=== PATIENT | female | born 1955 | race Caucasian/White ===

== ENCOUNTER 2023-06-21 12:01 | Emergency (ER) | payer OTHER, BC ==
[2023-06-21 12:08] VITALS: BMI 32.3
[2023-06-21] MEDS ORDERED: ACETAMINOPHEN 1000 MG/100 ML BAG IVPB ONE (13:41)
[2023-06-21] MEDS ORDERED: ACETAMINOPHEN INJECTION 100 ML IVPB ONE (13:53)
[2023-06-21 15:26] LABS: BASO % 0.2 % (0-2.0); EOS % 0.2 % (0-4.5); HEMATOCRIT 41.9 % (32.4-45.2); LYMPH % 8.3 % (8-40); MCH 29.1 pg (25.7-33.7); MCHC 33.3 g/dl (32.0-36.0); MEAN CELL VOLUME 87.3 fl (80-96); MEAN PLT VOLUME 9.4 fl (7.5-11.1); MONO % 2.7 % (3.8-10.2); NEUT % 88.6 % (42.8-82.8); PLATELET COUNT 246 10^3/uL (134-434); RDW 13.1 % (11.6-15.6); WHITE BLOOD COUNT 14.6 K/mm3 (4.0-10.0)
[2023-06-21] MEDS ORDERED: PROPOFOL 200 MG/20 ML VIAL IVPUSH ONE (15:33)
[2023-06-21] MEDS ORDERED: KETAMINE HCL 200 MG/20 ML VIAL IVPUSH ONE (15:33)
[2023-06-21] MEDS ORDERED: KETAMINE HCL 200 MG/20 ML VIAL ONE (15:38)
[2023-06-21] MEDS ORDERED: PROPOFOL 20 ML ONE (15:38)
[2023-06-21 15:44] LABS: POTASSIUM 3.9 mmol/L (3.5-5.1)
[2023-06-21 15:46] LABS: CALCIUM 9.2 mg/dL (8.5-10.1)
[2023-06-21 15:50] LABS: CREATININE 0.6 mg/dL (0.55-1.3)
[2023-06-21 15:52] LABS: BILIRUBIN,TOTAL 0.3 mg/dL (0.2-1); TOT PROT 7.2 g/dl (6.4-8.2)
[2023-06-21 17:26] VITALS: RESP 20; TEMP 99.5
[2023-06-21 17:48] VITALS: BP 128/82; PULSE 78
== END 2023-06-21 17:30 | disposition home or self-care (01) ==
LOC: JER 12:01
PROC: 0RSJXZZ Reposition Right Shoulder Joint, External Approach (ICD-10-PCS; principal; 2023-06-21)
PROC: 3E033NZ Introduction of Analgesics, Hypnotics, Sedatives into Peripheral Vein, Percutaneous Approach (ICD-10-PCS; 2023-06-21)
DX: S43.004A Unspecified dislocation of right shoulder joint, initial encounter (principal); M25.511 Pain in right shoulder; W01.198A Fall on same level from slipping, tripping and stumbling with subsequent striking against other object, initial encounter; Y99.0 Civilian activity done for income or pay
CPT/HCPCS: 36415; 73030-TC-RT-FY; 80053; 85025; 86850; 86900; 86901; 93005; 93010; 99285-25

== ENCOUNTER 2023-07-22 19:29 | Observation (INO) | payer BC, OTHER ==
[2023-07-22 20:53] LABS: PROTHROMBIN TIME (PATIENT) 11.6 SEC (9.7-13.0)
[2023-07-22 20:56] LABS: ACTIVATED PTT 32.8 SECONDS (25.2-36.5)
[2023-07-22 20:58] LABS: BASO % 0.3 % (0-2.0); EOS % 1.3 % (0-4.5); HEMATOCRIT 39.2 % (32.4-45.2); HEMOGLOBIN 13.8 GM/dL (10.7-15.3); LYMPH % 19.9 % (8-40); MCHC 35.3 g/dl (32.0-36.0); MEAN CELL VOLUME 84.9 fl (80-96); MEAN PLT VOLUME 8.5 fl (7.5-11.1); MONO % 7.4 % (3.8-10.2); NEUT % 71.1 % (42.8-82.8); PLATELET COUNT 261 10^3/uL (134-434); RBC 4.61 M/mm3 (3.60-5.2); RDW 12.8 % (11.6-15.6); WHITE BLOOD COUNT 9.5 K/mm3 (4.0-10.0)
[2023-07-22 21:01] LABS: POTASSIUM 3.8 mmol/L (3.5-5.1)
[2023-07-22 21:02] LABS: CALCIUM 8.9 mg/dL (8.5-10.1)
[2023-07-22 21:03] LABS: ALBUMIN 3.9 g/dl (3.4-5.0)
[2023-07-22 21:04] LABS: BLOOD UREA NITROGEN 8.6 mg/dL (7-18)
[2023-07-22 21:06] LABS: CREATININE 0.7 mg/dL (0.55-1.3)
[2023-07-22 21:08] LABS: BILIRUBIN,TOTAL 0.3 mg/dL (0.2-1)
[2023-07-22 21:38] LABS: URINE APPEARANCE CLEAR; URINE BILIRUBIN NEGATIVE (NEGATIVE); URINE COLOR YELLOW; URINE GLUCOSE (UA) 2+ (NEGATIVE); URINE KETONE NEGATIVE (NEGATIVE); URINE LEUK ESTERASE NEGATIVE (NEGATIVE); URINE NITRITE NEGATIVE (NEGATIVE); URINE PROTEIN NEGATIVE (NEGATIVE); URINE UROBILINOGEN 0.2 mg/dL (0.2-1.0)
[2023-07-22] MEDS ORDERED: predniSONE 20 MG TABLET (UD) PO ONE (23:42)
[2023-07-22] MEDS ORDERED: valACYclovir HCL 500 MG TABLET (FP) PO ONE (23:42)
[2023-07-22] MEDS ORDERED: valACYclovir HCL 500 MG TABLET (FP) ONE (23:47)
[2023-07-22] MEDS ORDERED: predniSONE 20 MG TABLET (UD) ONE (23:47)
[2023-07-23] MEDS ORDERED: LEVOTHYROXINE NA 50 MCG TABLET (FP) ONE (08:26)
[2023-07-23] MEDS: INSULIN SLIDING SCALE (NOVOLOG) 1 VIAL SQ SCH ×4 (08:51→22:04)
[2023-07-23] MEDS: LEVOTHYROXINE NA 50 MCG TABLET (FP) PO SCH (08:52)
[2023-07-23] MEDS: ENOXAPARIN NA (PORCINE) 40 MG/0.4 ML DISP.SYRIN SQ SCH (09:50)
[2023-07-23] MEDS: LISINOPRIL 20 MG TABLET PO SCH (09:50)
[2023-07-23] MEDS: HYDROCHLOROTHIAZIDE 25 MG TABLET (FP) PO SCH (09:50)
[2023-07-23 17:50] VITALS: BMI 36.5
[2023-07-23] MEDS: ASPIRIN 81 MG CHEWABLE TABLETS PO SCH (18:28)
[2023-07-23] MEDS ORDERED: ATORVASTATIN CA 40 MG TABLET (FP) PO SCH (22:00)
[2023-07-23] MEDS ORDERED: MONTELUKAST NA 10 MG TABLET PO SCH (22:00)
[2023-07-23] MEDS ORDERED: INSULIN (NOVOLOG) ASPART 100 UNITS/ML 10ML VIAL ONE (22:02)
[2023-07-24] MEDS: INSULIN SLIDING SCALE (NOVOLOG) 1 VIAL SQ SCH ×3 (06:14→17:22)
[2023-07-24] MEDS: LEVOTHYROXINE NA 50 MCG TABLET (FP) PO SCH (06:14)
[2023-07-24 09:02] LABS: HEMATOCRIT 41.2 % (32.4-45.2); HEMOGLOBIN 14.2 GM/dL (10.7-15.3); MCH 29.7 pg (25.7-33.7); MCHC 34.5 g/dl (32.0-36.0); MEAN PLT VOLUME 8.8 fl (7.5-11.1); PLATELET COUNT 267 10^3/uL (134-434); RBC 4.79 M/mm3 (3.60-5.2); RDW 12.7 % (11.6-15.6)
[2023-07-24 09:50] LABS: POTASSIUM 3.4 mmol/L (3.5-5.1)
[2023-07-24] MEDS: LISINOPRIL 20 MG TABLET PO SCH (09:58)
[2023-07-24] MEDS: HYDROCHLOROTHIAZIDE 25 MG TABLET (FP) PO SCH (09:58)
[2023-07-24] MEDS: ENOXAPARIN NA (PORCINE) 40 MG/0.4 ML DISP.SYRIN SQ SCH (09:58)
[2023-07-24] MEDS: ASPIRIN 81 MG CHEWABLE TABLETS PO SCH (09:58)
[2023-07-24 09:59] LABS: CALCIUM 8.8 mg/dL (8.5-10.1)
[2023-07-24 10:00] LABS: ALBUMIN 3.7 g/dl (3.4-5.0); MAGNESIUM 1.7 mg/dL (1.8-2.4)
[2023-07-24 10:03] LABS: CREATININE 0.6 mg/dL (0.55-1.3)
[2023-07-24 10:04] LABS: BILIRUBIN,TOTAL 0.6 mg/dL (0.2-1); TOT PROT 6.8 g/dl (6.4-8.2)
[2023-07-24] MEDS ORDERED: MAGNESIUM SULF 50% (8.12 MEQ/2 ML-1 GM VIAL) IVPB ONE (10:15)
[2023-07-24] MEDS ORDERED: POTASSIUM CHLORIDE TABS 20 MEQ TABLET.ER (FP) PO ONE (12:22)
[2023-07-24] MEDS ORDERED: LISINOPRIL 20 MG TABLET PO ONE (15:47)
[2023-07-24 16:10] VITALS: TEMP 98.9
[2023-07-24 16:12] VITALS: BP 139/68; PULSE 95; RESP 20
[2023-07-24] MEDS ORDERED: INSULIN (NOVOLOG) ASPART 100 UNITS/ML 10ML VIAL ONE (17:23)
== END 2023-07-24 19:12 | disposition home or self-care (01) ==
LOC: JER 19:29 → JERBED 07-23 → UNDOADMOB 07-23 → OBSVTOIN 07-23 03:26 → INTOOBSV 07-23 03:26 → JERBED 07-23 10:26 → J4W 07-23 14:35
PROVIDERS: ADMIT Internal Medicine; ATTEND Internal Medicine
PROC: 3E023GC Introduction of Other Therapeutic Substance into Muscle, Percutaneous Approach (ICD-10-PCS; principal; 2023-07-23)
PROC: 3E013VG Introduction of Insulin into Subcutaneous Tissue, Percutaneous Approach (ICD-10-PCS; 2023-07-23)
PROC: 3E033GC Introduction of Other Therapeutic Substance into Peripheral Vein, Percutaneous Approach (ICD-10-PCS; 2023-07-23)
DX: G51.0 Bell's palsy (principal); R20.0 Anesthesia of skin; R00.2 Palpitations; E87.1 Hypo-osmolality and hyponatremia; E11.9 Type 2 diabetes mellitus without complications; R00.0 Tachycardia, unspecified; Z88.8 Allergy status to other drugs, medicaments and biological substances; I10 Essential (primary) hypertension; E03.9 Hypothyroidism, unspecified
CPT/HCPCS: 36415; 70450-TC; 80053; 80061; 81003; 82550; 82962; 83036; 83735; 84100; 84436; 84443; 84484; 85025; 85027; 85610; 85730; 86038; 86618; 86850; 86900; 86901; 93005; 93010; 99285-25; G0378